=== PATIENT | female | born 1995 | race African-American/Black ===

== ENCOUNTER 2019-10-04 16:42 | Emergency (ER) | payer OTHER, SELFPAY ==
--- NOTE | ~2019-10-04 | XR_ITS ---
EXAMINATION: XR chest 2V EXAM DATE: 10/04/2019 18:15 INDICATION: Cough and shortness of breath. Mid chest pain. TECHNIQUE: Frontal and lateral projections of the chest obtained and reviewed. There is no prior leonid dy for comparison. FINDINGS: The lungs are clear. There are no pleural effusions. The cardiomediastinal silhouette is within normal limits. There is no pneumothorax suspected. The bones and soft tissues are unremarkab le. IMPRESSION: The lungs are clear. There are no pleural effusions. The cardiomediastinal silhouette i s within normal limits. There is no pneumothorax suspected. The bones and soft tissues are unremark able. IMPRESSION: No acute cardiopulmonary findings. Reviewed, dictated and finalized at location A. BUTCHER IMPRESSION: The lungs are clear. There are no pleural effusions. The cardiome diastinal silhouette is within normal limits. There is no pneumothorax suspect ed. The bones and soft tissues are unremarkable.
[2019-10-04 16:46] VITALS: BP 133/85; PULSE 97; RESP 20; TEMP 36.8; O2SAT 100
[2019-10-04 17:57] VITALS: PULSE 74; RESP 18
[2019-10-04] MEDS: IPRATROPIUM BR 0.02% INH SOLN 0.5 MG/2.5 ML VIAL INHALATION (17:57)
[2019-10-04] MEDS: ALBUTEROL SULFATE NEB 2.5 MG/0.5 ML INH 5 MG INHALATION (17:57)
[2019-10-04 18:07] VITALS: PULSE 77; RESP 18
--- NOTE | 2019-10-04 18:27 | ED.URI ---
HPI - URI/Sore Throat General Chief Complaint: Upper Respiratory Infection Stated Complaint: cough Time Seen by Provider: 10/04/19 17:10 Source: patient Mode of arrival: ambulatory Limitations: no limitations History of Present Illness HPI Narrative: This is a 24 year old female that presents to the ER for cold symptoms x 2 weeks. Reports cough, myalgias, sore throat and congestion. Reports a history of asthma and that she is out of her inhaler. Reports chest pain when she coughs. Denies fever or shortness of breath. Related Data Allergies Allergy/AdvReac Type Severity Reaction Status Date / Time ibuprofen [From Advil] Allergy Rash Verified 10/04/19 16:49 Review of Systems Review of Systems: Narrative: CONSTITUTIONAL: Denies fever ENT: Reports rhinorrhea, congestion, sore throat. Denies otalgia. CARDIOVASCULAR: Reports chest pain RESPIRATORY: Reports cough. Denies dyspnea. All systems reviewed & are unremarkable except as noted in HPI and below PMFSH Past Medical History Medical History (Updated 10/04/19 @ 19:12 by Africa Cody PA-C) History of asthma Social History Social History (Updated 10/04/19 @ 18:34 by Africa Cody PA-C) Smoking status: Never smoker Exam Narrative: Exam Narrative: GENERAL: Well-appearing, well-nourished, and in no acute distress. HEAD: Normocephalic, atraumatic. EYES: EOMI. ENT: Nares clear, no rhinorrhea or epistaxis. Mucous membranes moist. Oropharynx without tonsillar hypertrophy exudate or other lesions. Bilateral TMs pearly montano non-bulging NECK: Supple. No adenopathy or masses. CHEST: Clear to auscultation. No respiratory distress. No wheezes rales or rhonchi HEART: Regular rate and rhythm. No murmur heard. Normal peripheral pulses. EXTREMITIES: Normal range of motion. No edema. SKIN: Warm, dry, no rash. NEURO: No focal deficits. Alert and oriented x3. PSYCH: Normal mood and affect Course Vital Signs Vital signs: Vital Signs Temperature 98.3 F 10/04/19 16:46 Pulse Rate 97 10/04/19 16:46 Respiratory Rate 20 10/04/19 16:46 Blood Pressure 133/85 10/04/19 16:46 Pulse Oximetry 100 10/04/19 16:46 Temperature 98.3 F 10/04/19 16:46 Pulse Rate 77 10/04/19 18:07 Respiratory Rate 18 10/04/19 18:07 Blood Pressure 133/85 10/04/19 16:46 Pulse Oximetry 100 10/04/19 16:46 MDM - URI/Sore Throat MDM Narrative Medical decision making narrative: Patient presents to the emergency department for cold symptoms x2 weeks. She is afebrile and nontoxic-appearing. Lungs are clear on exam. Influenza and strep screens are negative. Chest x-ray is without acute findings. Patient reports improvement with nebulizer treatment. She will be given an albuterol inhaler for home and was instructed on other symptomatic care of viral infection. She is to follow-up with her primary care doctor. She was given warnings to return to the ER Lab Data Attestation: I reviewed the patient's lab results. Labs: Influenza A Screen Negative Reference Range: Negative Influenza B Screen Negative Reference Range: Negative Strep Screen Presumptive Negative *(Reference Range: Negative)* Imaging Data Radiologist's impression: ITS Impressions Chest X-Ray 10/04/19 18:30 IMPRESSION: The lungs are clear. There are no pleural effusions. The cardiomediastinal silhouette is within normal limits. There is no pneumothorax suspected. The bones and soft tissues are unremarkable. IMPRESSION: No acute cardiopulmonary findings. Critical Care Time Critical Care Time Critical Care Time: No Discharge Plan Discharge Clinical Impression: Upper respiratory infection Qualifiers: URI type: unspecified viral URI Qualified Code(s): J06.9 - Acute upper respiratory infection, unspecified Patient Disposition: Home, Self-Care Condition: Stable Instructions: Cold Symptoms (ED) Additional I
== END 2019-10-04 19:20 | disposition home or self-care (01) ==
PROVIDERS: Emergency Provider Emergency Medicine
DX: J06.9 Acute upper respiratory infection, unspecified (principal); J45.909 Unspecified asthma, uncomplicated
CPT/HCPCS: 71046; 87081; 87804; 87880; 94640; 99283

== ENCOUNTER 2020-10-18 07:41 | Emergency (ER) | payer OTHER, SELFPAY ==
--- NOTE | ~2020-10-18 | US_ITS ---
EXAMINATION: US pelvic complete w TV DATE: 10/18/2020 08:55 INDICATION: Pelvic pain for one week Comparison:No prior studies for comparison. TECHNIQUE: Multiple transabdominal and endovaginal sonographic images of the pelvis performed. FINDINGS: The uterus measures 10.8 x 4.3 x 3.4 cm. The endometrial complex measures 4.5 mm. The right ovary measures 2.1 x 2 x 2.3 cm and the left ovary measures 2.0 x 1.9 x 2.2 cm. There are small follicles in each ovary. Normal doppler signal in both ovaries. There is no free fluid in the pelvis. There are no abnormal masses seen on either side. IMPRESSION: 1. Unremarkable pelvic ultrasound. Reviewed, dictated and finalized at location A.
[2020-10-18 08:02] VITALS: BP 144/105; PULSE 87; RESP 16; TEMP 36.2; O2SAT 100
--- NOTE | 2020-10-18 08:25 | ED.GENADULT ---
HPI - General Adult General Chief complaint: Abdominal Pain Stated complaint: abd cramping Time Seen by Provider: 10/18/20 07:51 Source: patient History of Present Illness HPI narrative: Patient is a 25 y/o female complaining of lower abdominal pain cramping pain starting 1 week ago. There is no pain radiation. She rates her pain as 7/10. There is no alleviating or exacerbating factor. She has no vomiting, diarrhea or dysuria. She is just coming off her period. She still has some minimal vaginal bleeding. Related Data Home Medications Medication Instructions Recorded Confirmed loratadine mg 10/18/20 Allergies Allergy/AdvReac Type Severity Reaction Status Date / Time ibuprofen [From Advil] Allergy Rash Verified 10/18/20 08:25 Review of Systems Constitutional: Constitutional: Denies chills, Denies fever(s), Denies headache(s) and Denies weakness Eyes: Eyes: Denies blurry vision ENT: Denies headache(s) and Denies neck pain Cardiovascular: Cardiovascular: Denies chest pain and Denies dyspnea Respiratory: Respiratory: Denies cough and Denies dyspnea Gastrointestinal: Gastrointestinal: Reports abdominal pain, Denies diarrhea, Denies nausea and Denies vomiting Genitourinary: Genitourinary: Denies hematuria and Denies dysuria Musculoskeletal: Musculoskeletal: Denies back pain and Denies neck pain Neurologic: Denies headache(s) and Denies weakness PMFSH Past Medical History Medical History History of asthma Social History Social History Smoking status: Never smoker Gender identity (if verbalized by the patient): Female Exam Const: General: no acute distress and well developed Orientation/consciousness: oriented to person, oriented to place, oriented to time and patient oriented x3 HENMT: Head: normocephalic Ears: external ears normal General nose exam: Normal external nose present Eyes: General: appearance normal, both eyes and all related structures Conjunctivae: conjunctivae normal Neck: Neck: normal visual inspection and full ROM Chest: Chest palpation & inspection: normal inspection of the chest and no tenderness Resp: Effort & Inspection: normal respiratory effort Auscultation: clear to auscultation bilaterally Cardio: Rate: regular rate Rhythm: regular rhythm GI: GI Palp: No abdominal tenderness and Yes Soft to palpation : External Female Exam: normal external appearance Speculum Exam - Vagina: normal appearance of the vagina Speculum Exam - Cervix: normal appearance of the cervix Bimanual Exam- Adnexa, other: normal adnexae OB/external & speculum: external exam normal Skin: General skin exam: normal color and turgor normal Neuro: General: oriented to person, oriented to place, oriented to time and patient oriented x3 Cognition (Neuro): normal cognition Extrem: General: normal to inspection, full ROM and no pedal edema Psych: Appearance: grossly normal Mental Status: mental status grossly normal Affect: normal affect Course Vital Signs Vital signs: Vital Signs Temperature 36.2 C L 10/18/20 08:02 Pulse Rate 87 10/18/20 08:02 Respiratory Rate 16 10/18/20 08:02 Blood Pressure 144/105 H 10/18/20 08:02 Pulse Oximetry 100 10/18/20 08:02 Temperature 36.2 C L 10/18/20 08:02 Pulse Rate 73 10/18/20 11:19 Respiratory Rate 16 10/18/20 11:19 Blood Pressure 129/98 H 10/18/20 11:19 Pulse Oximetry 100 10/18/20 11:19 Medical Decision Making Vital Signs Vital Signs: Vital Signs Temperature 36.2 C L 10/18/20 08:02 Pulse Rate 87 10/18/20 08:02 Respiratory Rate 16 10/18/20 08:02 Blood Pressure 144/105 H 10/18/20 08:02 Pulse Oximetry 100 10/18/20 08:02 Temperature 36.2 C L 10/18/20 08:02 Pulse Rate 73 10/18/20 11:19 Respiratory Rate 16 10/18/20 11:19 Blood Pressure 129/98 H 10/18/20 11:19 Pulse Oximetry 100
[2020-10-18 08:38] LABS: Basophils Percent Auto 0.2 % (0.2-1.2); Eosinophils Absolute Auto 0.1 K/mm3 (0-0.3); Eosinophils Percent Auto 1.1 % (0-4.4); Hematocrit 35.3 % (37.0-47.0); Hemoglobin 12.9 g/dL (12.0-15.0); Immature Granulocyte Absolute 0.02 K/mm3 (0.00-0.031); Immature Granulocyte Percent A 0.2 % (0-0.5); Lymphocytes Absolute Auto 4.62 K/mm3 (0.9-3.2); Lymphocytes Percent Auto 44.2 % (18.3-44.2); Mean Corpuscular HGB Conc 36.5 g/dl (32-36); Mean Corpuscular Hemoglobin 30.6 pg (26-34); Mean Corpuscular Volume 83.8 fl (80-100); Mean Platelet Volume 10.7 fl (7.4-10.4); Monocytes Absolute Auto 0.8 K/mm3 (0.1-0.6); Monocytes Percent Auto 7.8 % (2.6-8.5); Neutrophils Absolute Auto 4.9 K/mm3 (1.3-6.7); Neutrophils Percent Auto 46.5 % (45.5-73.1); Platelet Count Result 248 k/mm3 (150-375); Red Blood Count 4.21 M/mm3 (4.2-5.4); Red Cell Distribution Width 14.4 % (11.5-14.5); White Blood Count 10.5 K/mm3 (4.5-10.0)
[2020-10-18 08:42] LABS: Add Urine Microscopic? YES; Appearance Urine Cloudy (Clear); Bacteria Urine Trace /hpf; Bilirubin Urine Negative (Negative); Blood Urine Negative (Negative); Color Urine Yellow (Yellow); Glucose Urine UA Negative (Negative); Ketones Urine Negative (Negative); Leukocyte Esterase Ur Trace LEU/UL (Negative); Mucus Urine Rare /lpf; Nitrate Urine Negative (Negative); Protein Urine Negative (Negative); RBC Urine 0-2 /hpf (0-2); Specific Grav Ur 1.028 (1.001-1.035); Squamous Epithelial Cell Urine Many /hpf (Few); Urobilinogen Urine Negative mg/dL (<2.0)
[2020-10-18 08:46] LABS: Anisocytosis 1+ (NORMAL); Platelet Estimate Adequate (Adequate); Stomatocytes 1+ (NORMAL); Target Cells 1+ (NORMAL)
[2020-10-18 08:49] LABS: Alanine Aminotransferase 30 U/L (4-35); Albumin Level 4.4 g/dL (3.5-5.1); Alkaline Phosphatase 83 U/L (38-126); Anion Gap 8 mmol/L (8-16); Aspartate Amino Transferase 26 U/L (14-36); Bilirubin,Total 0.2 mg/dL (0.2-1.3); Blood Urea Nitrogen 13 mg/dL (7-17); Calcium 9.5 mg/dL (8.4-10.2); Carbon Dioxide 31 mmol/L (22-30); Chloride 101 mmol/L (98-107); Estimated CRCL calculation 130 ml/min; Estimated Glomerular Filt Rate > 60; Glucose 115 mg/dL (65-105); Potassium 3.7 mmol/L (3.4-5.0); Sodium 140 mmol/L (137-145)
[2020-10-18] MEDS: KETOROLAC 30 MG/ML VIAL (*BKC) IV PUSH (09:15)
[2020-10-18 11:19] VITALS: BP 129/98; PULSE 73; RESP 16; O2SAT 100
== END 2020-10-18 12:20 | disposition home or self-care (01) ==
PROVIDERS: Emergency Provider Emergency Medicine
DX: R10.2 Pelvic and perineal pain (principal); J45.909 Unspecified asthma, uncomplicated
CPT/HCPCS: 36415; 76830; 76856; 80053; 81001; 81025; 85025; 87070; 87491; 87591; 87808; 96374; 99284; J1885